=== PATIENT | male | born 1995 | race Caucasian/White ===

== ENCOUNTER 2016-12-31 20:28 | Emergency (ER) | payer BC ==
[~2016-12-31 20:28] MED LIST: ALBUTEROL17 GM; KEFLEX500 M2 PO; TOPAMAX PO
== END 2016-12-31 21:20 | disposition home or self-care (01) ==
LOC: SED 20:28
DX: R51 Headache (principal); J45.909 Unspecified asthma, uncomplicated; Z91.013 Allergy to seafood
CPT/HCPCS: 36415; 96361; 96374; 96375; 99284; J0780; J1200; J1885; J2405

== ENCOUNTER 2017-05-28 21:28 | Emergency (ER) | payer BC ==
[~2017-05-28] VITALS: Ht 167.6 cm; Wt 64.9 kg
== END 2017-05-29 | disposition left against medical advice (07) ==
LOC: SED 21:28
DX: Z53.21 Procedure and treatment not carried out due to patient leaving prior to being seen by health care provider (principal)